=== PATIENT | male | born 1955 | race Caucasian/White ===

== ENCOUNTER → 2017-12-25 08:03 | Outpatient (CLI) | payer MEDICARE ==
[2014-12-25 09:46] VITALS: BMI 20.9
[~2017-12-25 08:03] MED LIST: ATROVENT 0.02%2.5 ML UPD; DALIRESP500 MCG PO; LEVAQUIN750 MG PO; MUCINEX DM ER1 EAC1 PO; NICODERM C1 PATCH .1 TRANSDERM; PREDNISONE20 MG PO; PROTONIX40 MG PO; SINGULAIR10 MG PO; SYMBICORT 16010.2 GM INH; XOPENEX 0.0.63 MG/3 UPD
== END | disposition home or self-care (01) ==
LOC: D.CT 08:03
DX: F17.210 Nicotine dependence, cigarettes, uncomplicated (principal)

== ENCOUNTER → 2018-04-28 08:23 | Outpatient (CLI) | payer MEDICARE ==
[2014-12-25 09:46] VITALS: BMI 20.9
[2018-04-30 11:23] LABS: ANGIOTENSIN CONVERTING ENZYME 43 U/L (14-82)
[2018-05-02 12:08] LABS: FUNGAL - ASP FLAVUS Negative (Neg:<1:1); FUNGAL - ASP NIGER Negative (Neg:<1:1); FUNGAL - ASPER FUMIGATUS Negative (Neg:<1:1)
== END | disposition home or self-care (01) ==
LOC: D.RT 08:23
PROVIDERS: Internal Medicine Pulmonary Disease
DX: R91.8 Other nonspecific abnormal finding of lung field (principal); J44.9 Chronic obstructive pulmonary disease, unspecified

== ENCOUNTER → 2019-04-01 08:07 | Outpatient (CLI) | payer MEDICARE ==
[2014-12-25 09:46] VITALS: BMI 20.9
--- NOTE | ~2019-04-01 | ST ---
PATIENT:WINTER JERRY MEDICAL RECORD: [id number] SEX: M LOCATION:[facility] ORDER #: ADMISSION DATE: 04/01/19 AGE OF PATIENT: 63 REFERRING PHYSICIAN: INTERPRETING PHYSICIAN: HUNTER UP MD DATE OF SERVICE: 04/01/2019 Nuclear Stress Test INDICATIONS: Angina, hypertension. He was exercised under standard Victorino protocol for 5 minutes achieving 100% max target heart rate response with 28 mCi of sestamibi injected at peak stress, 9 mCi used previously for rest images. FINDINGS: Gated SPECT reveals a preserved ejection fraction 58% with good wall motioning and thickening and brightening throughout all segments. SPECT imaging: Cardiolite was used as myocardial perfusion agent. There is reversibility throughout the inferior and apical segments as well as the lateral segments and inferoapical segments, which include the basal, mid, apical, inferior segments as well as the apex itself. The degree of reversibility is moderate. The amount of myocardium involved is moderate. The degree of reversibility throughout the lateral segments is mild and includes the basal, mid, apical, lateral segments. OVERALL IMPRESSION: This is an abnormal nuclear stress test, reversibility inferiorly, apically, and laterally suggestive of multivessel hemodynamically significant coronary artery disease with an intermediate to high risk abnormality. TRANSINT:[id number] Voice Confirmation ID: [id number] DOCUMENT ID: [id number] HUNTER UP MD CC: ABHIJEET DE LA ROSA MD [id number] DICTATION DATE: 04/03/197 STAFF GENETIC COUNSELOR: 04/03/19 2235 DEP CLI 04/01/19 [address] [place] [address]
== END | disposition home or self-care (01) ==
LOC: D.HCCARDIO 08:07
PROVIDERS: ATTEND Internal Medicine Interventional Cardiology
DX: I20.9 Angina pectoris, unspecified (principal)

== ENCOUNTER 2019-04-12 07:54 | Outpatient (CLI) | payer MEDICARE ==
[~2019-04-12] VITALS: Ht 185.4 cm; Wt 80.0 kg
--- NOTE | ~2019-04-12 | OP ---
PATIENT NAME: WINTER JERRY SR MEDICAL RECORD: [id number] :57 LOCATION:D.CAT ADMISSION DATE: SURGEON: HUNTER UP MD DATE OF OPERATION: 04/12/2019 PROCEDURES: 1. PTCA stent LAD. 2. PTCA stent left circumflex. 3. IFR RCA. 4. IFR left circumflex. 5. IFR LAD. 6. Left heart catheterization. 7. Selective coronary angiography. 8. Left ventriculogram. INDICATION: Angina and coronary artery disease. PROCEDURE PERFORMED: After informed consent was obtained and after detailed description of risks, benefits as well as alternative therapies, the patient elected to proceed with angiogram and angioplasty. The right radial area was prepped and draped in normal sterile fashion. Right radial artery was cannulated via modified Seldinger technique with placement of 6-Czech sheath. All catheters exchanged through this sheath. FINDINGS: Left ventriculogram was performed in standard 30-degree SOSA view, reveals good cardiac wall motion throughout all segments. Overall ejection fraction estimated at 60%. SELECTIVE CORONARY ANGIOGRAPHY: 1. Left main is with no significant angiographic disease with left anterior descending has 70% stenosis in the mid vessel and IFR was abnormal. 2. Left circumflex has 70% stenosis in mid vessel and IFR was abnormal. 3. The right coronary has a questionable stenosis in the mid vessel; however, IFR was normal throughout. PTCA STENT OF THE LEFT CIRCUMFLEX: 1. The stent used was a 3.0 x 15 mm Handy, result was 0% residual stenosis. An IFR normalized. 2. Left anterior descending was addressed with a 3.0 x 15 mm Heaters, result was 0% residual stenosis. OVERALL IMPRESSION: Successful percutaneous transluminal coronary angioplasty stent of the left anterior descending and circumflex, both going from 70% initial stenosis to 0% residual. TRANSINT:[id number] Voice Confirmation ID: [id number] DOCUMENT ID: [id number] OPERATIVE REPORT [id number] WINTER JERRY SR, JEFFREY MD CC: [id number] DICTATION DATE: 04/12/191120 STORE GROCERY MERCHANDISER: 04/12/192025 DEP CLI 04/12/19 [address] [place] [address]
--- NOTE | ~2019-04-12 | HEMODYNAMI ---
PATIENT:WINTER JERRY SR MEDICAL RECORD: [id number] : 57 LOCATION:[facility] ADMISSION DATE: 04/12/19 Generatedon:04/12/201911:05 Patient name: WINTER JERRY Patient #: [id number] SSN: : 1955 Date of study: 04/12/2019 Page: Of Hemodynamic Procedure Report Patient Data Patient Demographics Procedure consent was obtained First Name: WINTER Gender: Male Last Name: ROSALINO Suffix: [facility] Initial: L : 1955 Patient #: [id number] Age: 64 year(s) Race: Unknown Additional ID: [id number] Contact details Address: [address] [place] [address] State: [place] City: [facility] Zip code: [address] Past Medical History Allergies: No known allergies Admission Admission Data Admission Date: 04/12/2019 Admission Time: 7:54 Lab Results Lab Result Date: 04/12/2019 Lab Result Time: 0:00 Biochemistry Name Units Result Min Max BUN mg/dl 14 --(--*-)-- 7 18 Creatinine mg/dl 1 --(--*-)-- 0.6 1.3 eGFR ml/min 79.54530 *-(----)-- 90 120 NONAFRICAN CBC Name Units Result Min Max Hematocrit % 46.1 --(-*--)-- 42 54 Hemoglobin g/dl 15.7 --(--*-)-- 13.5 17.5 Procedure Procedure Types Cath Procedure Diagnostic Procedure LHC LHC w/Coronaries FFR/IVUS FFR Initial FFR Additional Sedation Charges Moderate Sedation up to 15 minutes PCI Procedure Coronary Stent Coronary Stent Initial x2 Hemochron ACT Test Procedure Description Procedure Date Procedure Date: 04/12/2019 Procedure Start Time: 10:36 Procedure End Time: 11:01 Procedure Staff Name Function Sherif Smith MD Performing Physician Jacqueline Cardona RT Monitor Eduarda De La Cruz RN Nurse Kerline Schwab RT Scrub Richmond Mouar RT Control Electrician Procedure Data Cath Procedure Fluoroscopy Diagnostic fluoroscopy Total fluoroscopy Time: 6.3 time: 6.3 min min Diagnostic fluoroscopy Total fluoroscopy dose: 526 dose: 526 mGy mGy Contrast Material Contrast Material Type Amount (ml) Isovue 300 115 Entry Location Entry Primary Successful Side Size Upsize Upsize Entry Closure Chavez ccessful Closure Location (Fr) 1 (Fr) 2 (Fr) Remarks Device Remarks Radial Right 6 Fr Mechanical artery Short Compression Estimated blood loss: 10 ml Diagnostic catheters Device Type Used For End Catheter Placement DIAGNOSTIC Palmetto 110cm 5 Procedure Fr catheter ([id number]) Procedure Complications No complications Procedure Medications Medication Administration Route Dosage Oxygen etCO2 Nasal cannula 2 l/min Lidocaine 2% added to field 20 Heparin Flush Bag added to field 2 bags (1000units/500ml NS) 0.9% NaCl I.V. 100 ml/hr Radial Cocktail I.A. 1 syringe (Verapamil 2mg/Nitro 400mcg/Heparin 1500units) Versed I.V. 2 mg Fentanyl I.V. 100 mcg Versed I.V. 2 mg Fentanyl I.V. 50 mcg Heparin Bolus I.V. 4000 units Integrilin (Bolus I.V. 7.3 ml 2mg/ml) Fentanyl I.V. 50 mcg Plavix P.O. 600 mg Hemodynamics Rest Heart Rate: 71 (bpm) Snapshots Pre Cath Intra NCS Post Cath Vital Signs Time Heart Resp SPO2 etCO2 NIBP (mmHg) Rhythm Pain Sedation Rate (ipm) (%) (mmHg) Status Level (bpm) 10:29:37 59 16 96 0 125/74(100) NSR 0 (11) 10(A) , No pain 10:33:46 68 21 96 33.9 120/75(99) NSR 0 (11) 10(A) , No pain 10:37:58 77 14 97 15.8 108/65(83) NSR 0 (11) 10(A) , No pain 10:42:04 88 11 95 30.9 107/71(89) NSR 0 (11) 9(A) , No pain 10:46:07 86 11 96 35.4 106/76(92) NSR 0 (11) 9(A) , No pain 10:50:13 75 12 98 13.5 114/67(86) NSR 0 (11) 9(A) , No pain 10:54:23 79 11 95 29 105/66(84) NSR 0 (11) 9(A) , No pain 10:58:27 82 13 96 43.7 112/75(95) NSR 0 (11) 10(A) , No pain Medications Time Medication Route Dose Verified Delivered Reason Not es Effectiveness by by 10:28:43 Oxygen etCO2 2 l/min Sherifinés Lerner used for Nasal Luis De La Cruz RN procedure cannula 10:28:50 Lidocaine 2% added 20ml Sherif Gorman for local to vial Luis Smith MD anesthetic field 10:28:55 Heparin Flush added 2 bags Sherif Gorman used for Bag to Luis Smith MD procedure (1000units/500ml field NS) 10:29:05 0.9% NaCl I.V. 100 Sherif Buffie Per physician ml/hr Luis De La Cruz RN 10:35:02 Versed I.V. 2 mg Sherif Lerner for sedation Luis De La Cruz RN 10:35:09 Fentanyl I.V. 100 mcg Sherif Lerner for sedation Luis De La Cruz RN 10:37:52 Radial Cocktail I.A. 1 Sherif Gorman for (Verapamil syringe Luis Smith MD vasodilation 2mg/Nitro 400mcg/Heparin 1500units) 10:38:40 Versed I.V. 2 mg Sherif [place] for sedation Luis De La Cruz RN 10:44:05 Fentanyl I.V. 50 mcg Sherif Lerner for sedation Luis De La Cruz RN 10:49:37 Heparin Bolus I.V. 4000 Sherif Lerner for rosalba ified units Luis De La Cruz RN anticoagulation with dr smith 10:51:40 Integrilin I.V. 7.3 ml Sherif Lerner for was jael (Bolus 2mg/ml) Luis De La Cruz RN antiplatelet 2.7 ml therapy of vial 10:54:24 Fentanyl I.V. 50 mcg Sherif Lerner for sedation Luis De La Cruz RN 10:59:35 Plavix P.O. 600 mg Sherif Lerner for Luis De La Cruz RN antiplatelet therapy Procedure Log Time Note 10:10:36 Richmond Moura RT(R) sent for patient. Start room use. 10:21:34 Procedure Status Elective Heart Cath (OP). 10:21:43 Time tracking: Regular hours (M-F 7:00 - 5:00) 10:21:46 Plan of Care:Hemodynamics will remain stable., Cardiac rhythm will remain stable., Comfort level will be maintained., Respiratory function will remain adequate., Patient/ family verbilizes understanding of procedure., Procedure tolerated without complication., Recovers from procedure without complications.. 10:21:53 H&P Date Dictated: 03/23/2019 Within 30 days and on chart., H&P Addendum completed by physician on day of procedure. (MUST COMPLETE FOR ALL OUTPATIENTS). 10:21:59 Patient allergic to No known allergies 10:22:05 Patient received from Pre/Post Procedure Room to CCL 1 Alert and oriented. Tansferred to table in Supine position. 10:22:08 Signed procedure consent form obtained from patient. 10:22:10 Warm blankets applied, and jessie hugger turned on for patient comfort. 10:22:10 Correct patient and procedure confirmed by team. 10:22:10 ECG and BP/O2 sat monitors applied to patient. 10:22:16 Baseline sample Acquired. 10:22:26 Full Disclosure recording started 10:25:19 Pre-procedure instructions explained to patient. 10:25:20 Pre-op teaching completed and patient verbalized understanding. 10:25:23 Family in patients room. 10:25:25 Patient NPO since Midnight. 10:25:29 Is patient on blood thinner?No 10:25:30 Is the patient allergic to Iodine/contrast media? No. 10:25:33 Patient diabetic? No. 10:25:39 Previous problem with sedation/anesthesia? No ? 10:25:42 Snore? Yes 10:25:46 Sleep apnea? No 10:25:51 Deviated septum? No 10:25:53 Opens mouth fully? Yes 10:25:56 Sticks out tongue? Yes 10:26:00 Airway obstruction? Yes COPD 10:26:03 Dentures? No ? 10:26:06 Pre procedure: right dorsailis pedis pulse 1+ Palpable, but thready & weak; easily obliterated 10:26:08 Modified Isaac's test Ulnar < 7 seconds 10:26:12 Patient pain scale 0/10 ?. 10:26:18 IV patent on arrival in left hand with 0.9% NaCl at KVO. 10:27:14 Lab Result : BUN 14 mg/dl 10::14 Lab Result : Creatinine 1 mg/dl 10::14 Lab Result : eGFR NONAFRICAN 79.61549 ml/min 10::14 Lab Result : Hemoglobin 15.7 g/dl 10::14 Lab Result : Hematocrit 46.1 % 10:27:33 Lab results completed and on chart. 10:28:32 Vital chart was started 10:28:43 Oxygen 2 l/min etCO2 Nasal cannula was administered by Eduarda De La Cruz RN; used for procedure; Verbal order read back and verified. 10:28:50 Lidocaine 2% 20ml vial added to field was administered by Sherif Smith MD; for local anesthetic; Verbal order read back and verified. 10:28:55 Heparin Flush Bag (1000units/500ml NS) 2 bags added to field was administered by Sherif Smith MD; used for procedure; Verbal order read back and verified. 10:29:05 0.9% NaCl 100 ml/hr I.V. was administered by Eduarda De La Cruz RN; Per physician; Verbal order read back and verified. 10:30:37 Stress Test: yes; abnormal MULTIVESSEL 10:32:31 Risk of Mortality: .1 10:32:34 Risk of blood transfusion: .1 10:32:36 Risk of NISHA: .1 10:32:40 Right Radial & Right Groin area was prepped with chlora-prep and draped in sterile fashion 10:32:41 Alarms reviewed by R. N. 10:32:41 Sharps counted by scrub and verified by R.N. 10:33:13 Use device set Radial Dx or PCI 10:33:15 ACIST Syringe (04466) opened to sterile field. 10:33:16 MBrace Wrist Support ([id number]) opened to sterile field. 10:33:16 Bag Decanter () opened to sterile field. 10:33:16 ACIST Hand Control (47490) opened to sterile field. 10:33:16 ACIST Manifold (07996) opened to sterile field. 10:33:22 Tegaderm 4 x 4 (1626W) opened to sterile field. 10:33:24 Medline Cath Pack ([id number]) opened to sterile field. 10:33:28 EMERALD Guide Wire (058-587) opened to sterile field. 10:33:28 SHEATH 6FR IZZY (1809277) opened to sterile field. 10:33:49 Baseline sample Acquired. 10:34:01 Rhythm: sinus rhythm 10:34:50 --------ALL STOP TIME OUT------ 10:34:51 Final Timeout: patient, procedure, and site verified with staff and physician. All members of the team are in agreement. 10:35:02 Versed 2 mg I.V. was administered by Eduarda De La Cruz RN; for sedation; Verbal order read back and verified. 10:35:06 Right Radial & Right Groin site verified by team. 10:35:09 Fentanyl 100 mcg I.V. was administered by Eduarda De La Cruz RN; for sedation; Verbal order read back and verified. 10:35:10 Fire Safety Assessment: A--An alcohol-based skin anteseptic being used preoperatively., C--Open oxygen or nitrous oxide is being used., D--An ESU, laser, or fiber-optic light is being used. 10:35:13 Physical assessment completed. ASA score P 2 - A patient with mild systemic disease as per Sherif Smith MD. 10:35:16 2) 60-89 Mildly reduced kidney function, and other findings (as for stage 1) point to kidney disease. 10:35:19 Maximum allowable contrast dose (3.7 X eGFR X 0.75)222 ml. 10:35:22 Sedation plan: IV Moderate Sedation Medication:Versed, Fentanyl 10:36:09 Procedure started. 10:36:12 Zero performed for pressure channel P1 10:36:33 Local anesthetic to right radial artery with Lidocaine 2% by Sherif Smith MD.INITIAL ACCESS ONLY 10:36:52 A 6 Fr Short sheath was inserted into the Right Radial artery 10:37:44 A DIAGNOSTIC Palmetto 110cm 5 Fr catheter (033616) was advanced over the wire and used for Procedure. 10:37:52 Radial Cocktail (Verapamil 2mg/Nitro 400mcg/Heparin 1500units) 1 syringe I.A. was administered by Sherif Smith MD; for vasodilation; Verbal order read back and verified. 10:38:26 LV gram done using SOSA 10:38:33 Injector settings: Ml/sec: 5, Volume: 15, 10:38:40 Versed 2 mg I.V. was administered by Eduarda De La Cruz RN; for sedation; Verbal order read back and verified. 10:38:48 EF : 55 % 10:38:50 LCA angiography performed. 10:40:25 Catheter exchanged over wire. 10:40:44 UNABLE TO ENGAGE RCA 10:40:46 GUIDE 6FR AR 2.0 catheter ([id number]) opened to sterile field. 10:40:53 6 Fr AR 2 guide catheter was inserted over the wire 10:42:46 INFLATOR Merit BasixCompak (TI3718) opened to sterile field. 10:42:47 [place] Verrata Plus pressure wire (28653E) opened to sterile field. 10:42:47 GUIDE 6FR XBLAD 3.5 catheter ([id number]) opened to sterile field. 10:42:54 RCA angiography performed. 10:44:05 Fentanyl 50 mcg I.V. was administered by Eduarda De La Cruz RN; for sedation; Verbal order read back and verified. 10:44:15 FFR/IFR wire advanced. 10:44:16 Wire advanced across lesion. 10:44:43 mRCA lesion measured at .95 with IFR 10:45:15 Wire removed. 10:45:16 Guide catheter removed. 10:46:06 6 Fr XBLAD 3.5 guide catheter was inserted over the wire 10:46:57 FFR/IFR wire advanced. 10:47:34 Wire advanced across lesion. 10:47:46 mLAD lesion measured at .73 with IFR 10:47:53 Wire redirected to CIRC. 10:48:00 Wire advanced across lesion. 10:48:15 mCirc lesion measured at .85 with IFR 10:48:42 Pre PCI Site: [place] mLAD has 70% stenosis. 10:48:51 Pre PCI Site: [place] mCirc has 70% stenosis. 10:49:37 Heparin Bolus 4000 units I.V. was administered by Eduarda De La Cruz RN; for anticoagulation; verified with dr smith Verbal order read back and verified. 10:50:40 Place stent Inflation Number: 1 A MOON RX 3.0 x 15 stent ([id number]) was prepped and advanced across the Mid CX . The stent was deployed at 15 DIMITRIOS for 0:00 (min:sec) . 10:51:15 Stent catheter was removed intact over wire. 10:51:40 Integrilin (Bolus 2mg/ml) 7.3 ml I.V. was administered by Eduarda De La Cruz RN; for antiplatelet therapy; wasted 2.7 ml of vial Verbal order read back and verified. 10:52:31 mCirc lesion POST STENT measured at .99 with IFR 10:52:44 Wire redirected to LAD. 10:54:24 Fentanyl 50 mcg I.V. was administered by Eduarda De La Cruz RN; for sedation; Verbal order read back and verified. 10:55:04 Place stent Inflation Number: 1 A MOON RX 3.0 x 15 stent ([id number]) was prepped and advanced across the Mid LAD . The stent was deployed at 15 DIMITRIOS for 0:00 (min:sec) . 10:55:26 Stent catheter was removed intact over wire. 10:55:28 Wire removed. 10:55:29 Guide catheter removed. 10:55:35 ZEPHYR REGULAR TR BAND (285151) opened to sterile field. 10:55:40 Procedure ended.(Physican Out) 10:56:18 Sheath removed intact; hemostasis achieved with Mechanical Compression to the Right Radial artery. 10:56:22 Fluoroscopy time 06.30 minutes. 10:56:25 Flurop Dose total: 526 10:56:25 Fluoroscopy dose: 526 mGy 10:56:39 Dose Area Product 97490 mGy/cm. 10:56:43 Contrast amount:Isovue 300 115ml. 10:56:45 Maximum allowable dose exceeded? No. 10:56:46 Sharps counted by scrub and verified by R.N. 10:56:49 [place] band inflated with 10cc of air. 10:56:52 Post-procedure physical assessment completed. ASA score P 2 - A patient with mild systemic disease as per Sherif Smith MD. 10:56:57 Post procedure rhythm: sinus rhythm 10:57:00 Estimated blood loss: 10 ml 10:57:01 Post procedure instruction explained to patient.Patient verbalizes understanding. 10:57:02 Patient needs reinforcement of post procedure teaching. 10:57:56 Procedure type changed to Cath procedure, Diagnostic procedure, LHC, LHC w/Coronaries, FFR/IVUS, FFR Initial, FFR Additional, Sedation Charges, Moderate Sedation up to 15 minutes, PCI procedure, Coronary Stent, Coronary Stent Initial x2, Hemochron ACT Test 10:59:35 Plavix 600 mg P.O. was administered by Eduarda De La Cruz RN; for antiplatelet therapy; Verbal order read back and verified. 11:00:28 Procedure and supply charges have been captured, reviewed, submitted and are correct. 11:00:32 Procedure Complication : No complications 11:00:34 Vital chart was stopped 11:00:35 [facility] Findings: MVD- PCI performed (see procedure note) 11:00:37 Operative report dictated upon procedure completion. 11:00:38 See physician's report for complete and final results. 11:00:42 ACT drawn and resulted at OUT OF RANGE seconds. (normal therapeutic range 180-240 seconds). 11:00:58 Report given to Pre/Post Procedure Room. 11:01:01 Patient transfered to Pre/Post Procedure Room with Bed. 11:01:02 Procedure ended. 11:01:02 Full Disclosure recording stopped 11:01:09 ACC-PCI Only Patient was given prescriptions, or instructed by Sherif Smith MD to start/continue the following medications upon discharge: Plavix 11:01:10 End room use (Document Last) 11:04:01 End room use (Document Last) 11:04:52 End room use (Document Last) Intervention Summary Intervention Notes Time ActionType Lesion and Equipment Used Action# Pressure Duration Attributes 10:50:40 Place stent Mid CX MOON RX 3.0 x 1 15 00:00 15 stent ([id number]) 10:55:04 Place stent Mid LAD MOON RX 3.0 x 1 15 00:00 15 stent ([id number]) Device Usage Item Name Manufacture Quantity Catalog Hospital Part Current Minimal Lot# / Number Charge Number Stock Stock Serial# Code ACIST Syringe Acist 1 44577 [id number] 773442 096504 20 (20094) Medical Systems Inc Bag Decanter Microtek 1 2001S 110885 25849 605739 5 () Medical Inc. ACIST Hand Acist 1 86406 938841 552826 294922 5 Control Medical (71711) Systems Inc ACIST Manifold Acist 1 98596 958600 177340 472487 5 (28416) Medical Systems Inc Tegaderm 4 x 4 3M 1 1626W 323205 735133 162345 5 (1626W) Medline Cath Medline 1 [id number] 808495 22042 658769 5 Pack ([id number]) EMERALD Guide Cardinal 1 502-455 645014 785916 704652 5 Wire (502-455) Health SHEATH 6FR Cardinal 1 [id number] 057647 8243620 223869 5 RAIN (5468666) Health DIAGNOSTIC Terumo 1 40-8810 676794 291815 710099 5 Palmetto 110cm 5 Fr catheter (680857) GUIDE 6FR AR Medtronic 1 [id number] 877489 41767 334581 1 2.0 catheter ([id number]) INFLATOR Merit Merit 1 EA3111 262083 174967 660682 15 BasixComcaReachLocal Medical ([id number]) [place] 1 [id number] 139086 082412235 091517 5 Verrata Plus pressure wire (10541O) GUIDE 6FR Cardinal 1 [id number] 280778 644134 586580 10 XBLAD 3.5 Health catheter (13729008) MOON RX 3.0 x Medtronic 2 [id number] 161441 5647844 662589 5 [id number] 15 stent [id number] ([id number]) ZEPHYR REGULAR Cardinal 1 498814 139409 3510252 309674 5 TR BAND Health (858372) MBrace Wrist Advanced 1 140-0250-00 060557 92165 344968 5 Support Vascular ([id number]) Dynamics Signature Audit [place] Stage Time Signature Unsigned Intra-Procedure 04/12/2019 Jacqueline Cardona 11:04:01 AM RT(R) Intra-Procedure 04/12/2019 Eduarda De La Cruz RN 11:04:52 AM Intra-Procedure 04/12/2019 Sherif Smith 11:05:09 AM [facility] [address] [place] [address]
[2019-04-12] MEDS ORDERED: BREO ELLIPTA 11 EACH INH (08:33)
[2019-04-12] MEDS ORDERED: LIPITOR10 MG PO (08:34)
[2019-04-12] MEDS ORDERED: LISINOPRIL10 MG PO (08:34)
[2019-04-12 08:41] VITALS: BP 123/103; Ht 185.4 cm; Wt 80.0 kg
[2019-04-12 09:13] LABS: BASOPHILS 0.1 % (0-2); EOSINOPHILS 1.9 % (0-7); HEMATOCRIT 46.1 % (42.0-54.0); HEMOGLOBIN 15.7 g/dL (13.5-17.5); IMMATURE GRANULOCYTES 0.6 % (0-5); LYMPHOCYTES 23.2 % (15-50); MCH 29.9 pg (26.0-34.0); MCHC 34.1 g/dL (31.0-37.0); MCV 87.8 fL (80.0-100.0); MEAN PLATELET VOLUME 8.8 fL (7.4-10.4); MONOCYTES 12.2 % (2-11); RBC 5.25 10x6/uL (4.20-6.10); RDW 13.4 % (11.5-14.5); WBC 9.1 10x3/uL (4.8-10.8)
[2019-04-12 09:24] LABS: PLATELET COUNT 314 10x3/uL (130-400)
[2019-04-12 09:37] LABS: ALT (SGPT) 37 U/L (10-68); CALC OSMOLALITY 282 mosm/kg (275-300); CALCIUM 8.7 mg/dL (8.5-10.1); CHLORIDE - SERUM 105 mmol/L (98-107); CHOL - HDL RATIO 3.4 ratio (2.3-4.9); CHOLESTEROL, TOTAL 153 mg/dL (0-200); GLUCOSE 125 mg/dL (74-106); HDL CHOLESTEROL 45 mg/dL (32-96); LDL CHOLESTEROL 81 mg/dL (0-100); LDL-HDL RATIO 1.8 ratio (1.5-3.5); SODIUM 141 mmol/L (136-145); TRIGLYCERIDE 138 mg/dL (30-200); UREA NITROGEN 14 mg/dL (7-18); eGFR NON AFRICAN AMERICAN 80 mL/min (90-120)
[2019-04-12 09:39] LABS: POTASSIUM - SERUM 4.9 mmol/L (3.5-5.1)
--- NOTE | 2019-04-12 11:10 | NUR ---
PATIENT ARRIVED TO ROOM 6, PLACED ON CM. VSS ON 2L NC. RIGHT Z BAND IN PLACE, NO S/S OF BLEEDING OR HEMATOMA. PRESENT AT BEDSIDE.
[2019-04-12] MEDS ORDERED: PLAVIX75 MG PO (11:18)
[2019-04-12] MEDS ORDERED: BAYER CHEWABLE81 MG PO (11:18)
--- NOTE | 2019-04-12 11:25 | NUR ---
PATIENT AWAKE, SIPPING WATER. VSS ON 2L NC. RIGHT Z BAND IN PLACE, NO S/S OF BLEEDING OR HEMATOMA. TOLERATING PO FLUIDS, NO N/V. NO C/O PAIN, NUMBNESS, OR TINGLING.
--- NOTE | 2019-04-12 11:55 | NUR ---
PATIENT INTERMITTENTLY RESTING, VSS ON 2L NC. RIGHT Z BAND IN PLACE, NO S/S OF BLEEDING OR HEMATOMA. NO C/O PAIN, NUMBNESS, OR TINGLING. NO N/V. SPOKE WITH FAMILY AND CALLED IN PRESCRIPTION FOR PLAVIX TO [facility]. CONFIRMED WITH FAMILY THAT PRESCRIPTION NEEDS TO BE PICKED UP TODAY SO THAT THE PATIENT CAN START TAKING PLAVIX TOMORROW.
--- NOTE | 2019-04-12 11:55 | NUR ---
PATIENT INTERMITTENTLY RESTING, VSS ON 2L NC. RIGHT RADIAL SITE IS CDI, NO S/S OF BLEEDING OR HEMATOMA. NO C/O PAIN, NUMBNESS, OR TINGLING. NO N/V.
--- NOTE | 2019-04-12 12:25 | NUR ---
PATIENT RESTING, VSS ON 1L NC. RIGHT RADIAL SITE IS CDI, NO S/S OF BLEEDING OR HEMATOMA. NO C/O PAIN, NUMBNESS, OR TINGLING. NO N/V. SPOUSE PRESENT AT BEDSIDE.
--- NOTE | 2019-04-12 12:55 | NUR ---
PATIENT AWAKE, DRINKING COFFEE. NO N/V. VSS ON 1L NC. RIGHT RADIAL SITE IS CDI, NO S/S OF BLEEDING OR HEMATOMA. NO C/O PAIN, NUMBNESS, OR TINGLING.
--- NOTE | 2019-04-12 13:26 | NUR ---
PATIENT RESTING, VSS ON ROOM AIR. RIGHT RADIAL SITE IS CDI, NO S/S OF BLEEDING OR HEMATOMA. NO C/O PAIN, NUMBNESS, OR TINGLING. NO N/V.
--- NOTE | 2019-04-12 13:55 | NUR ---
3CC OF AIR REMOVED WITH SMALL AMOUNT OF BLEEDING NOTED, 3CC OF AIR REPLACED WITH NO FURTHER S/S OF BLEEDING OR HEMATOMA. NO C/O PAIN, NUMBNESS, OR TINGLING. VSS ON ROOM AIR. SPOUSE PRESENT AT BEDSIDE.
--- NOTE | 2019-04-12 14:10 | NUR ---
3CC OF AIR REMOVED WITH NO S/S OF BLEEDING OR HEMATOMA. NO C/O PAIN, NUMBNESS, OR TINGLING. VSS ON ROOM AIR. NO N/V. FAMILY PRESENT
--- NOTE | 2019-04-12 14:30 | NUR ---
REMAINING AIR REMOVED FROM Z BAND, NO S/S OF BLEEDING OR HEMATOMA. DRESSING APPLIED IS CDI. VSS ON ROOM AIR. NO C/O PAIN, NUMBNESS, OR TINGLING. PATIENT VOIDED 400ML CLEAR YELLOW URINE WITHOUT DIFFICULTY. WRITTEN AND VERBAL DISCHARGE INSTRUCTIONS AND MEDICATION INSTRUCTIONS GIVEN TO PATIENT AND SPOUSE, BOTH VOICE UNDERSTANDING.
--- NOTE | 2019-04-12 14:40 | NUR ---
IV REMOVED. PATIENT DISCONNECTED FROM MONITORS TO GET DRESSED. VSS ON ROOM AIR. RIGHT RADIAL SITE IS CDI, NO S/S OF BLEEDING OR HEMATOMA.
--- NOTE | 2019-04-12 14:55 | NUR ---
PATIENT TRANSPORTED VIA WHEELCHAIR TO CAR WITH SPOUSE DRIVING, ALL BELONGINGS WITH PATIENT.
== END 2019-04-12 14:55 ==
LOC: D.CATH 07:54
PROVIDERS: ATTEND Internal Medicine Interventional Cardiology
DX: I20.9 Angina pectoris, unspecified (principal); R94.39 Abnormal result of other cardiovascular function study; Z72.0 Tobacco use; I10 Essential (primary) hypertension
CPT/HCPCS: 93458; 93571; 93572 ×2; C9600 ×2